=== PATIENT | male | born 2000 | race Hispanic/Latino ===

== ENCOUNTER 2019-08-26 20:21 | Emergency (ER) | payer OTHER, SELFPAY | END 2019-08-26 20:44 | disposition home or self-care (01) | LOC: ERS 20:21 | DX: R20.2 Paresthesia of skin (principal); F17.210 Nicotine dependence, cigarettes, uncomplicated; F32.9 Major depressive disorder, single episode, unspecified | CPT/HCPCS: 99283 ==